=== PATIENT | male | born 1965 | race Caucasian/White ===

== ENCOUNTER → 2019-02-11 | Outpatient (CLI) | payer OTHER ==
[2014-03-18 11:21] VITALS: BP 122/76
--- NOTE | 2019-02-12 11:48 | EEG ---
DATE OF SERVICE: 02/11/2019 EEG NUMBER: [id number]. OBJECTIVE: This is a 54-year-old male patient with history of daytime overly sleepiness. EEG was requested to help rule out seizure. METHODS: Twenty electrodes were applied according to the international 10-20 electrode placement system. EKG monitoring, hyperventilation, intermittent photic stimulation, monopolar and bipolar montages are routinely utilized. The record was obtained on a digital system with video monitoring. FINDINGS: 1. Background: The patient was recorded in the awake, drowsy, and sleep states. The overall background amplitude is 10-30 microvolts. A posterior dominant rhythm of 8-10 Hz is observed. 2. Abnormalities: No specific epileptiform discharge or electrographic seizure is seen. No focal or diffuse slowing. 3. Activation: Hyperventilation was performed with good efforts and normal response. Intermittent photic stimulation was performed with photic driving. IMPRESSION: This EEG is a normal study for the awake, drowsy, and sleep states. No focal, lateralizing, specific epileptiform discharge or electrographic seizure is seen. COLBY HACKETT MD DR: EDUAR/keisha JOB#: [id number] / [id number] GALI
== END | disposition home or self-care (01) ==
LOC: RT 12:50
PROVIDERS: ATTEND Psychiatry & Neurology Neurology
DX: R40.0 Somnolence (principal)
CPT/HCPCS: 95816

== ENCOUNTER → 2019-02-16 | Outpatient (CLI) | payer OTHER ==
[2014-03-18 11:21] VITALS: BP 122/76
[~2019-02-16] MED LIST: MAG HYDROX/ALUMINUM HYD/SIMETH 30 ML ORAL.SUSP PO ONE
--- NOTE | 2019-02-17 16:20 | SLEEP ---
DATE OF STUDY: 02/16/2019 POLYSOMNOGRAM REPORT: OBJECTIVE: The patient is a 54-year-old male with excessive somnolence, difficulty with insomnia, snoring, fatigue, observed apnea, awakening short of breath. Height 6 feet 1 inches, weight 210 pounds, body mass index 29. [place] sleep score is 13. INTERPRETATION: Sleep architecture is characterized by sleep efficiency of 85% across the 7 hours of recording time. Stage volumes are appropriate for age. Sleep onset latency is 18 minutes. Respiratory monitoring shows a total of 41 events per apnea-hypopnea index of 6.9 events per hour of sleep. The minimum oxygen saturation is 88%. Periodic limb movements of sleep occur at the rate of 4 events per hour of sleep, 2 events per hour of sleep, associated with arousal. No significant cardiac arrhythmias are observed. IMPRESSION: Abnormal polysomnogram showing obstructive sleep apnea and hypopnea. Please also refer to the separate multiple sleep latency test report. RECOMMENDATIONS: 1. The patient should be started on CPAP either with a variable CPAP machine or returning to the lab for a CPAP titration study. 2. He should avoid sedatives and alcohol and pursue weight loss. Thank you for letting us help with the patient's care. MATI ROBBINS MD DR: GILBERT/keisha JOB#: [id number] / [id number] GOSIA Johnson MD, FERILYN MD
--- NOTE | 2019-02-17 16:28 | SLEEP ---
DATE OF STUDY: MULTIPLE SLEEP LATENCY TEST REPORT: OBJECTIVE: The patient is a 54-year-old male with excessive somnolence. Please also refer to the separate report regarding the polysomnogram the night before. INTERPRETATION: Sleep latency on nap 1 is 5 minutes, nap 2 is 3.5 minutes, nap 3 is 9 minutes, nap 4 is 40 minutes, nap 5 is 13 minutes for a mean sleep latency of 6.1 minutes. REM is achieved on 0 of the 5 naps. IMPRESSION: Abnormal multiple sleep latency test showing evidence of excessive somnolence, but given the absence of REM sleep, this study does not meet criteria for a diagnosis of narcolepsy. Furthermore, note that he does have evidence of sleep apnea, albeit mild on the previous night's polysomnogram. RECOMMENDATIONS: Refer to the polysomnogram report. Thank you for letting us help with the patient's care. MATI ROBBINS MD DR: GILBERT/keisha JOB#: [id number] / [id number] GOSIA Johnson MD, FERILYN MD
== END | disposition home or self-care (01) ==
LOC: RT 19:06
PROVIDERS: ATTEND Psychiatry & Neurology Neurology
DX: G47.33 Obstructive sleep apnea (adult) (pediatric) (principal)
CPT/HCPCS: 95810

== ENCOUNTER → 2019-02-17 | Outpatient (CLI) | payer OTHER ==
[2014-03-18 11:21] VITALS: BP 122/76
== END | disposition home or self-care (01) ==
LOC: RT 07:00
PROVIDERS: ATTEND Psychiatry & Neurology Neurology
DX: G47.33 Obstructive sleep apnea (adult) (pediatric) (principal)
CPT/HCPCS: 95805

== ENCOUNTER → 2019-08-18 | Outpatient (CLI) | payer OTHER ==
[2014-03-18 11:21] VITALS: BP 122/76
[2019-08-18 14:25] LABS: BARBITURATES NEG (NEG); BENZODIAZEPINES NEG (NEG); CANNABINOIDS NEG (NEG); COCAINE NEG (NEG); METHADONE NEG (NEG); OPIATES NEG (NEG); PHENCYCLIDINE NEG (NEG)
[2019-08-18 14:26] LABS: AMPHETAMINE/METHAMPHETAMINE NEG (NEG)
[2019-08-18 14:50] LABS: ALBUMIN/GLOBULIN RATIO 1.4 (1.0-1.7); CALCIUM 8.8 mg/dL (8.5-10.1); CREATININE 1.1 mg/dL (0.7-1.3); POTASSIUM 4.5 mmol/L (3.5-5.1); TOTAL BILIRUBIN 0.2 mg/dL (0.2-1.0); TOTAL PROTEIN 6.8 g/dL (6.4-8.2)
== END | disposition home or self-care (01) ==
LOC: LAB 13:56
PROVIDERS: ATTEND Psychiatry & Neurology Neurology
DX: R40.0 Somnolence (principal)
CPT/HCPCS: 36415; 80053; 80307; 82607; 84443

== ENCOUNTER → 2019-09-06 | Outpatient (CLI) | payer OTHER ==
[2014-03-18 11:21] VITALS: BP 122/76
[~2019-09-06] MED LIST changes: -MAG HYDROX/ALUMINUM HYD/SIMETH 30 ML ORAL.SUSP PO ONE; +ZOLPIDEM 5 MG TABLET. PO ONE
--- NOTE | 2019-09-12 09:27 | SLEEP ---
DATE OF STUDY: 09/07/2019 OBJECTIVE: The patient is a 54-year-old male with insomnia, snoring, fatigue, observed apnea, excessive daytime somnolence, awakening short of breath. The patient had a previous sleep study on 02/16/2019, positive for sleep apnea. He is here for CPAP titration. Height 6 feet 1 inch, weight 270 pounds, body mass index 29 and [place] sleep score 20. INTERPRETATION: Sleep architecture is characterized by sleep efficiency of 88% across the 6.8 hours of recording time. Stage volumes are appropriate for age. Sleep onset latency is 19 minutes. Apnea-hypopnea index of 1.3 events per hour on CPAP titration study. Minimum oxygen saturation is 89%. At a setting of 7 cm, apnea-hypopnea index of 0. There are no significant cardiac arrhythmias. Periodic limb movements of sleep occur at the rate of 6 events per hour. IMPRESSION: Successful CPAP titration using a [employer] DreamWeaver full face mask, medium size, 7 cm. RECOMMENDATIONS: 1. The patient should be established on this setting. 2. He should avoid sedatives and alcohol and pursue weight loss. Thank you for letting us help with the patient's care. MATI ROBBINS MD DR: GILBERT/keisha JOB#: [id number] / [id number] KELLY Flanagan FERILYN MD
== END | disposition home or self-care (01) ==
LOC: RT 19:00
PROVIDERS: ATTEND Psychiatry & Neurology Neurology
DX: G47.30 Sleep apnea, unspecified (principal)
CPT/HCPCS: 95811